=== PATIENT | female | born 1975 | race Two or more races ===

== ENCOUNTER → 2020-06-04 15:37 | Outpatient (BNVA) | payer OTHER, SELFPAY | PROVIDERS: PCP Internal Medicine; Visit Provider Obstetrics & Gynecology ==

== ENCOUNTER 2020-07-02 14:43 | Outpatient (REF) | payer OTHER, SELFPAY ==
[2020-07-03 08:44] LABS: CT PCR NOT DETECTED (Not Detect.); NG PCR NOT DETECTED (Not Detect.)
[2020-07-03 09:39] LABS: BV Int Neg Control Negative (Negative); BV Int Pos Control Positive (Positive)
== END 2020-07-02 14:44 | disposition home or self-care (01) ==
LOC: HO.LAB 14:43
PROVIDERS: PCP Internal Medicine; Visit Provider Advanced Practice Midwife
DX: N89.8 Other specified noninflammatory disorders of vagina (principal); Z20.2 Contact with and (suspected) exposure to infections with a predominantly sexual mode of transmission
CPT/HCPCS: 87480; 87491; 87510; 87591; 87660; 99212

== ENCOUNTER 2020-07-09 08:18 | Outpatient (REF) | payer OTHER, SELFPAY ==
[2020-07-09 09:25] LABS: Alanine Aminotransferase 17 U/L (0-31); Albumin Level 4.3 g/dL (3.5-5.0); Alkaline Phosphatase 80 U/L (39-117); Anion Gap 13 (12-20); Aspartate Amino Transferase 22 U/L (5-31); Bilirubin Total 0.3 mg/dL (0.0-1.0); Blood Urea Nitrogen 10 mg/dL (9-16); Calcium 8.9 mg/dL (8.4-10.2); Carbon Dioxide 24 mmol/L (22-29); Chloride 107 mmol/L (96-108); Cholesterol 194 mg/dL; Estimated Glomerular Filt Rate > 60; Glucose Fasting 80 mg/dL (60-99); HDL Cholesterol 63 mg/dL; LDL Cholesterol Calculated 116 mg/dl; Potassium 4.3 mmol/L (3.3-5.1); Sodium 140 mmol/L (135-145); Total Protein 7.4 g/dL (6.5-8.0); Triglycerides 76 mg/dL
== END 2020-07-09 08:19 | disposition home or self-care (01) ==
LOC: HO.LAB 08:18
PROVIDERS: PCP Internal Medicine; Visit Provider Internal Medicine
DX: E78.00 Pure hypercholesterolemia, unspecified (principal); E78.5 Hyperlipidemia, unspecified
CPT/HCPCS: 36415; 80053; 80061

== ENCOUNTER → 2020-11-20 14:56 | Outpatient (BNVA) | payer OTHER, SELFPAY | PROVIDERS: PCP Internal Medicine; Visit Provider Obstetrics & Gynecology ==

== ENCOUNTER 2021-01-15 13:30 | Outpatient (REF) | payer OTHER, SELFPAY ==
--- NOTE | ~2021-01-15 | MM_ITS ---
EXAMINATION: MM SCREENING DIGITAL BREAST TOMOSYNTHESIS, BILATERAL CLINICAL INFORMATION: Screening. Asymptomatic. The lifetime risk of breast cancer based on the Tyrer-Cuzick Model is 12%. COMPARISON: Mammography: 10/15/2016, 04/30/2016 (baseline); targeted right breast ultrasound 11/02/2016, 05/04/2016 TECHNIQUE: Digital breast tomosynthesis is performed in both the craniocaudal and mediolateral oblique views along with computer-aided detection (CAD). Synthesized 2D images are generated from the tomosynthesis. FINDINGS: There are scattered areas of fibroglandular density (ACR BI-RADS breast composition Category b). There is no interval developing density or significant mass or architectural abnormality. Smooth nodule central 6:00 right breast noted on prior imaging is no longer demonstrated likely resolved cyst. The right breast has new grouped probable benign coarse calcifications mid 11:00 position. There are some other new calcifications in the upper outer quadrant of lesser number. Patient will be recalled for additional magnification views. The axilla and skin contours are unremarkable. MM/MM tomosynthesis screening BI IMPRESSION: 1. Right: New grouped relatively coarse calcifications upper outer right breast. 2. Left: No mammographic evidence of malignancy. ASSESSMENT: BI-RADS 0: Incomplete - Need Additional Imaging Evaluation RECOMMENDATION: 1. Additional views of the right breast (magnification CC, magnification ML). 2. Radiology department staff will contact the patient for additional imaging. This patient's information was entered into a reminder system with a target due date for their next mammogram.
== END 2021-01-15 13:31 | disposition home or self-care (01) ==
LOC: HO.MAMMO 13:30
PROVIDERS: Visit Provider Obstetrics & Gynecology
DX: Z12.31 Encounter for screening mammogram for malignant neoplasm of breast (principal)
CPT/HCPCS: 77063; 77067

== ENCOUNTER 2021-01-24 11:27 | Outpatient (REF) | payer OTHER, SELFPAY ==
--- NOTE | ~2021-01-24 | US_ITS ---
EXAMINATION: US SOFT TISSUE NECK CLINICAL INFORMATION: Lymphadenopathy COMPARISON: None TECHNIQUE: Ultrasound of the neck soft tissues is performed with high- frequency rincon-scale imaging and color Doppler. FINDINGS: THYROID BED: Prior thyroidectomy. No residual thyroid tissue demonstrated in the thyroid bed. No cystic or solid nodules demonstrated in the thyroid bed. RIGHT NECK SOFT TISSUES: Scattered architecturally normal nodes are present bilaterally. The nodes show normal fatty hilus, normal cortical thickness, and no cystic change or calcification. No abnormal color flow. The largest nodes are as follows: Level 2: 1.7 x 0.5 x 1.1 cm. Normal daniela architecture. Level 4: 1.3 x 0.4 x 0.8 cm. Normal daniela architecture. LEFT NECK SOFT TISSUES: Scattered architecturally normal nodes are present. The nodes show normal fatty hilus, normal cortical thickness, and no cystic change or calcification. No abnormal color flow. The largest nodes are as follows: Level 2: 1.2 x 0.4 x 0.9 cm. Normal daniela architecture. US/US soft tiss head and/or neck IMPRESSION: Bilateral cervical lymphadenopathy. Largest lymph nodes are upper normal in size. Lymph nodes demonstrate normal ultrasound morphology. Management should be determined on a clinical basis.
== END 2021-01-24 11:28 | disposition home or self-care (01) ==
LOC: HO.HMGCX 11:27
PROVIDERS: PCP Internal Medicine; Visit Provider Internal Medicine
DX: R59.1 Generalized enlarged lymph nodes (principal)
CPT/HCPCS: 76536

== ENCOUNTER 2021-01-24 13:18 | Outpatient (REF) | payer OTHER, SELFPAY ==
--- NOTE | ~2021-01-24 | MM_ITS ---
EXAMINATION: MM DIAGNOSTIC DIGITAL MAMMOGRAPHY, RIGHT CLINICAL INFORMATION: Recall from screening for increased calcifications upper outer right breast since prior diagnostic mammography 2017. COMPARISON: Mammography: 01/15/2021, 11/02/2016 (diagnostic). TECHNIQUE: Digital mammography is performed in the following views: Magnification CC, magnification ML FINDINGS: There are scattered areas of fibroglandular density (ACR BI-RADS breast composition Category b). The additional magnification views demonstrate 4 groups of calcifications in the central and upper outer right breast, 2 groups coarse and 2 groups smaller size. No layering calcifications on current exam. There are calcifications in these areas on prior study 2017, some layering milk of calcium demonstrated at that time. Results are discussed with patient at time of imaging. Calcifications are probably benign and will be reassessed again in 6 months to include magnification views. If additional more recent prior outside diagnostic mammography from [place], [place] is made available, comparison will be made in an addendum report. MM/MM added views RT IMPRESSION: Probable benign groups of calcifications central and upper outer right breast. ASSESSMENT: BI-RADS 3: Probably Benign RECOMMENDATION: Diagnostic right mammography in 6 months. This patient's information was entered into a reminder system with a target due date for their next mammogram.
== END 2021-01-24 13:19 | disposition home or self-care (01) ==
LOC: HO.MAMMO 13:18
PROVIDERS: PCP Internal Medicine; Visit Provider Obstetrics & Gynecology
DX: R92.1 Mammographic calcification found on diagnostic imaging of breast (principal)
CPT/HCPCS: 77065

== ENCOUNTER 2021-05-06 13:09 | Outpatient (REF) | payer OTHER, SELFPAY ==
[2021-05-06 13:35] LABS: MANUAL DIFF FLAG NO
[2021-05-06 14:18] LABS: Basophils Percent Auto 0.5 % (0-2); Eosinophils Percent Auto 0.2 % (0-4); Hematocrit 23.1 % (37.0-47.0); Lymphocytes Absolute Auto 0.6 X10*3/uL (1.2-4.9); Lymphocytes Percent Auto 14.5 % (20-40); Mean Corpuscular HGB Conc 26.8 g/dl (31.0-35.0); Mean Corpuscular Hemoglobin 16.4 pg (27.0-33.0); Monocytes Absolute Auto 0.3 X10*3/uL (0.1-1.2); Monocytes Percent Auto 6.7 % (2-11); Neutrophils Absolute Auto 3.3 x10*3/uL (2.0-8.3); Neutrophils Percent Auto 78.1 % (45-73); Platelet Count 257 X10*3/uL (160-400); Red Blood Count 3.77 X10*6/uL (4.20-5.50); Red Cell Distribution Width 19.5 % (11.0-16.0); White Blood Count 4.2 X10*3/uL (4.8-10.8)
[2021-05-06 14:39] LABS: Hemoglobin 6.2 g/dl (12.0-16.0); Mean Corpuscular Volume 61.3 fL (80.0-98.0)
[2021-05-06 14:48] LABS: Iron 19 mcg/dL (30-160)
[2021-05-06 15:12] LABS: Percent Iron Saturation 4 % (15-50); Total Iron Binding Capacity 527 mcg/dL (228-428); Unsaturated Iron Binding 508 ug/dL
[2021-05-10 13:02] LABS: Vitamin D 25-OH, D2 <4 ng/mL; Vitamin D 25-OH, D3 9 ng/mL; Vitamin D 25-OH, Total 9 ng/mL (30-100)
== END 2021-05-06 13:10 | disposition home or self-care (01) ==
LOC: HO.LAB 13:09
PROVIDERS: PCP Internal Medicine; Visit Provider Internal Medicine
DX: E55.9 Vitamin D deficiency, unspecified (principal); D64.9 Anemia, unspecified
CPT/HCPCS: 36415; 82306; 83540; 85025

== ENCOUNTER 2021-05-06 16:36 | Emergency (ER) | payer OTHER, SELFPAY ==
[2021-05-06 16:46] VITALS: BP 104/59; PULSE 87; RESP 18; TEMP 37; O2SAT 100; BMI 21.5
--- NOTE | 2021-05-06 18:45 | ECG_ITS ---
Test Reason : ABNORMAL LABS Blood Pressure : / mmHG Vent. Rate : 059 BPM Atrial Rate : 059 BPM P-R Int : 138 ms QRS Dur : 094 ms QT Int : 402 ms P-R-T Axes : 056 059 059 degrees QTc Int : 397 ms Sinus bradycardia Nonspecific T wave abnormality Borderline ECG No previous ECGs available Referred By: Lupe Morillo Electronically Signed By:QUYNH WOOD
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
[2021-05-06 18:56] LABS: OBS Int Ctl Valid YES; OBS1 NEGATIVE (NEGATIVE)
[2021-05-06 18:58] VITALS: BP 102/60; PULSE 64; RESP 16; TEMP 37.2; O2SAT 99
[2021-05-06 19:16] LABS: HCG Quantitative < 2 mIU/mL; Iron 13 mcg/dL (30-160)
[2021-05-06 19:25] LABS: Percent Iron Saturation 2 % (15-50); Total Iron Binding Capacity 550 mcg/dL (228-428); Unsaturated Iron Binding 537 ug/dL
[2021-05-06 19:27] VITALS: BP 109/59; PULSE 64; RESP 14; TEMP 37
--- NOTE | 2021-05-06 19:31 | PC.NURSE ---
Assumed care of pt Pt resting on stretcher, speaking to family on phone Denies any pain First unit of blood started with SHERI Ferris Pt tolerating well
[2021-05-06 19:42] VITALS: BP 106/79; PULSE 65; RESP 18; TEMP 37.2
[2021-05-06 19:44] LABS: Folate 11.6 ng/mL (> or = 4.0); Vitamin B12 169 pg/mL (200-900)
[2021-05-06 21:31] VITALS: BP 105/70; PULSE 71; RESP 16; TEMP 37.2
[2021-05-06 21:55] VITALS: BP 108/57; PULSE 68; RESP 20; TEMP 37.1; O2SAT 97
== END 2021-05-06 21:56 | disposition home or self-care (01) ==
PROVIDERS: Emergency Provider Emergency Medicine; PCP Internal Medicine
DX: D50.9 Iron deficiency anemia, unspecified (principal); R53.83 Other fatigue; Z98.84 Bariatric surgery status
CPT/HCPCS: 36415; 36430; 82272; 82607; 82746; 83540; 84702; 86850; 86900; 86901; 86923; 93005; 99283; 99291; P9016

== ENCOUNTER 2021-05-12 13:14 | Outpatient (REF) | payer OTHER, SELFPAY ==
[2021-05-12 13:29] LABS: MANUAL DIFF FLAG NO
[2021-05-12 13:52] LABS: Basophils Percent Auto 0.7 % (0-2); Hematocrit 27.1 % (37.0-47.0); Hemoglobin 7.4 g/dl (12.0-16.0); Imm Gran Abs Auto 0.01 X10*3/uL (0.00-0.03); Imm Gran Pct Auto 0.2 % (0.0-0.4); Lymphocytes Absolute Auto 1.7 X10*3/uL (1.2-4.9); Lymphocytes Percent Auto 41.4 % (20-40); Mean Corpuscular HGB Conc 27.3 g/dl (31.0-35.0); Mean Corpuscular Hemoglobin 17.6 pg (27.0-33.0); Mean Platelet Volume 10.6 fL (9.4-12.3); Monocytes Absolute Auto 0.2 X10*3/uL (0.1-1.2); Monocytes Percent Auto 5.4 % (2-11); Neutrophils Absolute Auto 2.1 x10*3/uL (2.0-8.3); Neutrophils Percent Auto 51.3 % (45-73); Platelet Count 341 X10*3/uL (160-400); Red Cell Distribution Width 23.6 % (11.0-16.0); White Blood Count 4.1 X10*3/uL (4.8-10.8)
[2021-05-12 13:53] LABS: Mean Corpuscular Volume 64.5 fL (80.0-98.0)
== END 2021-05-12 13:15 | disposition home or self-care (01) ==
LOC: HO.LAB 13:14
PROVIDERS: PCP Internal Medicine; Visit Provider Internal Medicine
DX: D64.9 Anemia, unspecified (principal)
CPT/HCPCS: 36415; 85025

== ENCOUNTER 2021-06-04 08:16 | Outpatient (REF) | payer OTHER, SELFPAY | END 2021-06-04 08:17 | disposition home or self-care (01) | LOC: HO.MDS 08:16 | PROVIDERS: PCP Internal Medicine; Visit Provider Internal Medicine | DX: D50.9 Iron deficiency anemia, unspecified (principal) | CPT/HCPCS: 96365; 96366; J1200; J1750; Q0163 ==

== ENCOUNTER 2021-07-03 10:00 | Outpatient (REF) | payer OTHER, SELFPAY ==
[2021-07-03 10:50] LABS: MANUAL DIFF FLAG NO
[2021-07-03 11:40] LABS: Basophils Percent Auto 0.8 % (0-2); Hematocrit 37.5 % (37.0-47.0); Hemoglobin 11.6 g/dl (12.0-16.0); Imm Gran Abs Auto 0.01 X10*3/uL (0.00-0.03); Imm Gran Pct Auto 0.3 % (0.0-0.4); Lymphocytes Absolute Auto 1.4 X10*3/uL (1.2-4.9); Mean Corpuscular HGB Conc 30.9 g/dl (31.0-35.0); Mean Corpuscular Hemoglobin 24.9 pg (27.0-33.0); Mean Corpuscular Volume 80.6 fL (80.0-98.0); Monocytes Absolute Auto 0.3 X10*3/uL (0.1-1.2); Monocytes Percent Auto 6.5 % (2-11); Neutrophils Absolute Auto 2.1 x10*3/uL (2.0-8.3); Neutrophils Percent Auto 54.4 % (45-73); Platelet Count 243 X10*3/uL (160-400); Red Blood Count 4.65 X10*6/uL (4.20-5.50); Red Cell Distribution Width 28.1 % (11.0-16.0); White Blood Count 3.9 X10*3/uL (4.8-10.8)
[2021-07-03 11:51] LABS: Iron 81 mcg/dL (30-160); Percent Iron Saturation 23 % (15-50); Total Iron Binding Capacity 345 mcg/dL (228-428); Unsaturated Iron Binding 264 ug/dL
== END 2021-07-03 10:01 | disposition home or self-care (01) ==
LOC: HO.LAB 10:00
PROVIDERS: PCP Internal Medicine; Visit Provider Internal Medicine
DX: D64.9 Anemia, unspecified (principal)
CPT/HCPCS: 36415; 83540; 85025

== ENCOUNTER 2021-08-14 13:59 | Outpatient (REF) | payer OTHER, SELFPAY ==
--- NOTE | ~2021-08-14 | MM_ITS ---
EXAMINATION: MM DIAGNOSTIC DIGITAL BREAST TOMOSYNTHESIS, RIGHT CLINICAL INFORMATION: Short interval six-month follow-up probable benign calcifications central and upper outer right breast. The lifetime risk of breast cancer based on the Tyrer-Cuzick Model is 12%. COMPARISON: Mammography: 01/24/2021, 01/15/2021 (BI-RADS 0), outside mammography 10/20/2017 ([place], [place]). TECHNIQUE: Digital breast tomosynthesis is performed in both the craniocaudal and mediolateral oblique views along with computer-aided detection (CAD). Synthesized 2D images are generated from the tomosynthesis. Additional magnification right CC and magnification right ML views are obtained. FINDINGS: Parenchymal pattern is similar to prior study. There is no developing density or interval mass or architectural abnormality. The calcifications for follow-up central and upper outer breast are stable to slightly decreased in number. There are no increasing calcifications. The group central anterior breast on MLO view shows benign layering milk of calcium. Other calcifications are stable and will be reassessed again in 6 months at time of annual exam. Results are provided to the patient at time of visit by the technologist. MM/MM tomosynthesis diagnostic RT IMPRESSION: -No suspicious changes in right breast calcifications under surveillance. ASSESSMENT: BI-RADS 3: Probably Benign RECOMMENDATION: Diagnostic mammography at time of annual bilateral exam, due in 6 months. This patient's information was entered into a reminder system with a target due date for their next mammogram.
== END 2021-08-14 14:00 | disposition home or self-care (01) ==
LOC: HO.MAMMO 13:59
PROVIDERS: PCP Internal Medicine; Visit Provider Obstetrics & Gynecology
DX: R92.1 Mammographic calcification found on diagnostic imaging of breast (principal)
CPT/HCPCS: 77061; 77065

== ENCOUNTER 2021-10-07 09:34 | Outpatient (REF) | payer OTHER, SELFPAY ==
[2021-10-07 09:46] LABS: MANUAL DIFF FLAG NO
[2021-10-07 10:53] LABS: Basophils Percent Auto 0.7 % (0-2); Eosinophils Absolute Auto 0.1 X10*3/uL (0.0-0.4); Eosinophils Percent Auto 1.1 % (0-4); Hematocrit 41.5 % (37.0-47.0); Hemoglobin 13.7 g/dl (12.0-16.0); Imm Gran Abs Auto 0.01 X10*3/uL (0.00-0.03); Imm Gran Pct Auto 0.2 % (0.0-0.4); Lymphocytes Absolute Auto 1.4 X10*3/uL (1.2-4.9); Lymphocytes Percent Auto 31.1 % (20-40); Mean Corpuscular Volume 90.8 fL (80.0-98.0); Mean Platelet Volume 12.1 fL (9.4-12.3); Monocytes Absolute Auto 0.3 X10*3/uL (0.1-1.2); Monocytes Percent Auto 6.3 % (2-11); Neutrophils Absolute Auto 2.7 x10*3/uL (2.0-8.3); Neutrophils Percent Auto 60.6 % (45-73); Platelet Count 225 X10*3/uL (160-400); Red Blood Count 4.57 X10*6/uL (4.20-5.50); Red Cell Distribution Width 13.6 % (11.0-16.0); White Blood Count 4.5 X10*3/uL (4.8-10.8)
[2021-10-07 11:30] LABS: Alanine Aminotransferase 24 U/L (0-31); Albumin Level 4.2 g/dL (3.5-5.0); Alkaline Phosphatase 76 U/L (39-117); Anion Gap 11 (12-20); Aspartate Amino Transferase 26 U/L (5-31); Bilirubin Total 0.6 mg/dL (0.0-1.0); Blood Urea Nitrogen 10 mg/dL (9-16); Calcium 8.8 mg/dL (8.4-10.2); Carbon Dioxide 26 mmol/L (22-29); Chloride 106 mmol/L (96-108); Cholesterol 214 mg/dL; Estimated Glomerular Filt Rate > 60; Glucose Fasting 87 mg/dL (60-99); HDL Cholesterol 65 mg/dL; Iron 137 mcg/dL (30-160); LDL Cholesterol Calculated 133 mg/dl; Percent Iron Saturation 39 % (15-50); Potassium 4.9 mmol/L (3.3-5.1); Sodium 138 mmol/L (135-145); Total Iron Binding Capacity 352 mcg/dL (228-428); Triglycerides 81 mg/dL; Unsaturated Iron Binding 215 ug/dL
[2021-10-07 11:51] LABS: Vitamin D 25-OH Total 24.8 ng/mL (>30)
[2021-10-07 12:15] LABS: Folate 11.2 ng/mL (> or = 4.0); Vitamin B12 324 pg/mL (200-900)
== END 2021-10-07 09:35 | disposition home or self-care (01) ==
LOC: HO.LAB 09:34
PROVIDERS: PCP Internal Medicine; Visit Provider Internal Medicine
DX: Z00.00 Encounter for general adult medical examination without abnormal findings (principal); E55.9 Vitamin D deficiency, unspecified; E53.8 Deficiency of other specified B group vitamins; D64.9 Anemia, unspecified; D50.0 Iron deficiency anemia secondary to blood loss (chronic)
CPT/HCPCS: 36415; 80053; 80061; 82306; 82607; 82746; 83540; 85025

== ENCOUNTER 2021-10-21 10:36 | Outpatient (REF) | payer OTHER, SELFPAY ==
[2021-10-21 13:47] LABS: CT PCR NOT DETECTED (Not Detect.); NG PCR NOT DETECTED (Not Detect.)
[2021-10-22 09:28] LABS: BV Int Neg Control Negative (Negative); BV Int Pos Control Positive (Positive)
== END 2021-10-21 10:37 | disposition home or self-care (01) ==
LOC: HO.LAB 10:36
PROVIDERS: Visit Provider Advanced Practice Midwife
DX: Z11.3 Encounter for screening for infections with a predominantly sexual mode of transmission (principal); N89.8 Other specified noninflammatory disorders of vagina; N94.9 Unspecified condition associated with female genital organs and menstrual cycle; R30.0 Dysuria
CPT/HCPCS: 87086; 87480; 87491; 87510; 87591; 87660; 99212

== ENCOUNTER → 2021-10-29 11:04 | Outpatient (BNVA) | payer OTHER, SELFPAY | PROVIDERS: PCP Internal Medicine; Referring Provider Internal Medicine; Visit Provider Physician Assistant | DX: Z98.84 Bariatric surgery status (principal); M79.3 Panniculitis, unspecified; L98.7 Excessive and redundant skin and subcutaneous tissue | CPT/HCPCS: 99202; 99212 ==

== ENCOUNTER 2021-11-07 10:52 | Outpatient (REF) | payer OTHER, SELFPAY ==
[2021-11-11 11:56] LABS: Zinc 72 mcg/dL (60-130)
[2021-11-13 19:16] LABS: Vitamin B1 10 nmol/L (8-30)
[2021-11-13 21:17] LABS: Vitamin A 34 mcg/dL (38-98)
--- NOTE | 2021-12-04 10:11 | W.MHC.F2F ---
Service Date Service Date: 12/04/21 Encounter Date of encounter: 12/19/21 Reasons for Services Signs and symptoms assessed: Patient will have panniculectomy with Dr Cordova on 12/18/21 she will be discharged on 12/19 and will need home VNA services starting 12/20/21. Reason for senior care: wound care and other (Drain care) MD Overseeing Care: Chad Cordova Homebound: Leaving the home is medically contraindicated at this time without the asist of a device and/or another person due th the listed conditions above and below. Reason homebound: other (post op, bed rest) Certification: Based on the above findings, I certify that this patient is confined to the home and needs intermittent senior care care, physical therapy and/or speech therapy, or continues to need occupational therapy. The patient is under my care, and I have initiated the establishment of the plan of care. The patient will be followed by a physician who will periodically review the plan of care.
== END 2021-11-07 10:53 | disposition home or self-care (01) ==
LOC: HO.LAB 10:52
PROVIDERS: PCP Internal Medicine; Visit Provider Physician Assistant
DX: Z98.84 Bariatric surgery status (principal)
CPT/HCPCS: 36415; 84425; 84590; 84630

== ENCOUNTER 2021-11-26 15:40 | Outpatient (REF) | payer OTHER, SELFPAY ==
[2021-11-27 08:41] LABS: CT PCR NOT DETECTED (Not Detect.); NG PCR NOT DETECTED (Not Detect.)
[2021-11-27 10:51] LABS: BV Int Neg Control Negative (Negative); BV Int Pos Control Positive (Positive)
== END 2021-11-26 15:41 | disposition home or self-care (01) ==
LOC: HO.LAB 15:40
PROVIDERS: Visit Provider Obstetrics & Gynecology
DX: Z11.3 Encounter for screening for infections with a predominantly sexual mode of transmission (principal); B96.89 Other specified bacterial agents as the cause of diseases classified elsewhere; N76.0 Acute vaginitis
CPT/HCPCS: 87480; 87491; 87510; 87591; 87660

== ENCOUNTER → 2021-12-04 13:33 | Outpatient (BNVA) | payer OTHER, SELFPAY | PROVIDERS: PCP Internal Medicine; Referring Provider Internal Medicine; Visit Provider Internal Medicine | DX: I95.0 Idiopathic hypotension (principal); Z98.84 Bariatric surgery status | CPT/HCPCS: 93005; 99202 ==

== ENCOUNTER 2021-12-11 09:35 | Outpatient (REF) | payer OTHER, SELFPAY | END 2021-12-11 09:36 | disposition home or self-care (01) | LOC: HO.LAB 09:35 | PROVIDERS: PCP Internal Medicine; Visit Provider Surgery | DX: Z13.89 Encounter for screening for other disorder (principal) ==

== ENCOUNTER 2021-12-18 18:55 | Inpatient (IN) | payer OTHER, SELFPAY ==
[2021-12-03 09:16] VITALS: BMI 24.3
[2021-12-11 10:05] LABS: MANUAL DIFF FLAG NO
[2021-12-11 10:28] LABS: Basophils Percent Auto 0.9 % (0-2); Eosinophils Percent Auto 0.9 % (0-4); Hematocrit 39.9 % (37.0-47.0); Hemoglobin 13.3 g/dl (12.0-16.0); Imm Gran Abs Auto 0.01 X10*3/uL (0.00-0.03); Imm Gran Pct Auto 0.2 % (0.0-0.4); Lymphocytes Absolute Auto 1.6 X10*3/uL (1.2-4.9); Lymphocytes Percent Auto 34.5 % (20-40); Mean Corpuscular HGB Conc 33.3 g/dl (31.0-35.0); Mean Corpuscular Hemoglobin 30.3 pg (27.0-33.0); Mean Corpuscular Volume 90.9 fL (80.0-98.0); Mean Platelet Volume 12.1 fL (9.4-12.3); Monocytes Absolute Auto 0.2 X10*3/uL (0.1-1.2); Monocytes Percent Auto 4.8 % (2-11); Neutrophils Absolute Auto 2.7 x10*3/uL (2.0-8.3); Neutrophils Percent Auto 58.7 % (45-73); Platelet Count 207 X10*3/uL (160-400); Red Blood Count 4.39 X10*6/uL (4.20-5.50); Red Cell Distribution Width 11.9 % (11.0-16.0); White Blood Count 4.6 X10*3/uL (4.8-10.8)
[2021-12-11 10:32] LABS: Prothrombin Time 11.6 SEC (10.0-13.1)
[2021-12-11 10:35] LABS: Partial Thromboplastin Time 34.5 SEC (26.0-36.4)
[2021-12-11 10:52] LABS: Estimated Average Glucose 88 mg/dL; Hemoglobin A1c % 4.7 %
[2021-12-11 11:15] LABS: Alanine Aminotransferase 21 U/L (0-31); Albumin Level 4.2 g/dL (3.5-5.0); Alkaline Phosphatase 82 U/L (39-117); Anion Gap 13 (12-20); Aspartate Amino Transferase 21 U/L (5-31); Bilirubin Total 0.3 mg/dL (0.0-1.0); Blood Urea Nitrogen 10 mg/dL (9-16); C Reactive Protein 0.03 mg/dL (< or = 0.50); Calcium 9.1 mg/dL (8.4-10.2); Carbon Dioxide 27 mmol/L (22-29); Chloride 104 mmol/L (96-108); Cholesterol 216 mg/dL; Creatinine Clr Calc Pharmacy 116.4; Estimated Glomerular Filt Rate > 60; Glucose Random 79 mg/dL (60-115); HDL Cholesterol 59 mg/dL; Iron 75 mcg/dL (30-160); LDL Cholesterol Calculated 142 mg/dl; Percent Iron Saturation 20 % (15-50); Potassium 4.1 mmol/L (3.3-5.1); Sodium 140 mmol/L (135-145); Total Iron Binding Capacity 377 mcg/dL (228-428); Total Protein 7.1 g/dL (6.5-8.0); Triglycerides 76 mg/dL; Unsaturated Iron Binding 302 ug/dL
[2021-12-11 11:36] LABS: Vitamin B12 326 pg/mL (200-900)
[2021-12-11 11:37] LABS: TSH reflex Free T4 1.54 uIU/mL (0.32-4.0); Vitamin D 25-OH Total 27.1 ng/mL (>30)
[2021-12-11 12:49] LABS: Insulin 5 uU/mL (2-29)
[2021-12-12 06:16] LABS: Syphilis Screen Nonreactive (Nonreactive)
[2021-12-12 07:23] LABS: HBsAGNum1 0.22 S/CO (0.00-0.99); HIV AB/AG Nonreactive (Nonreactive); HIV Num 1 0.07 S/CO (0.00-0.99); Hepatitis B Surface Antigen Negative (Negative); ~HepC Num1 0.11 S/CO (0.00-0.79); ~Hepatitis C Antibody Nonreactive (Nonreactive)
--- NOTE | 2021-12-12 23:18 | P.HPSUR_ITS ---
Pre-Procedural Eval Section A Date of Service: 12/12/21 The patient is an INPATIENT: No The History & Physical has been completed within 30 days and I have reviewed it.: Yes Section B Chief Complaint: panniculitis Relevant Family History (Specify if Yes): No Relevant Social History: None Present Medications: None Medical History: No relevant PMH History of Previous Operations: Relevant previous surgery/procedure and date(s) (gastric bypass) Allergies: Allergies Allergy/AdvReac Type Severity Reaction Status Date / Time No Known Allergies Allergy Verified 12/02/21 13:28 Review of Systems Sugical H&P ROS: Negative: Constitution, Cardiovascular, Respiratory, Neurological, Psychiatric, Hem-Onc, Allergic/Immunologic, Gastrointestinal, Genitourinary, Musculoskeletal, Integumentary, Endocrine and Eyes/Ears/N ose/Throat Exam Surgical H&P Exam: Normal: HEENT, Normal: Heart, Normal: Lungs, Normal: Extremities, Normal: Abdomen, Normal: Skin and Normal: Neurological Plan Diagnosis/Plan: Unchanged I have reviewed the history and physical and performed a pertinent physical examination on my patient. No changes have occurred unless specified.
[2021-12-15 06:07] LABS: Vitamin B1 12 nmol/L (8-30)
[2021-12-16 02:08] LABS: Zinc 69 mcg/dL (60-130)
--- NOTE | 2021-12-17 09:53 | P.CONAN_ITS ---
Documented by User: Marguerite Avila NP 12/17/21 09:55 HPI - Anesthesia Eval Consult details Narrative: 46yo F for Panniculectomy s/p bypass ? 12/2021 cardiac visit re: hypotension. Likely r/t weight loss. No tx at this time. PMF Active Problems Active Problems: All Active Problems (Updated 12/03/21 @ 09:13 by Krystle Soriano, SHERI) Vaginal discharge (Acute) Vaginal itching (Acute) Poor appetite (Acute) Well woman exam (Acute) Physical exam (Acute) B12 deficiency (Acute) Vaginal burning (Acute) Dysuria (Acute) Panniculitis (Acute) Excess skin (Acute) Bacterial vaginosis (Acute) Intestinal malabsorption (Acute) Hx of gastric bypass (Acute) Idiopathic hypotension (Acute) Hypovitaminosis D (Acute) S/P gastric bypass (Acute) Iron deficiency anemia due to chronic blood loss (Chronic) Back pain (Acute) GERD (gastroesophageal reflux disease) (Acute) Head and neck lymphadenopathy (Acute) Past Medical History Medical History Back pain GERD (gastroesophageal reflux disease) Head and neck lymphadenopathy Hypovitaminosis D Idiopathic hypotension Iron deficiency anemia due to chronic blood loss Pure hypercholesterolemia Family History Family History Father Diabetes mellitus Mother HTN (hypertension) Colon polyp Maternal Grandmother Diabetes mellitus Maternal Grandfather CAD (coronary artery disease) Paternal Grandfather CAD (coronary artery disease) Paternal Grandmother Leukemia Brother Colon cancer Surgical History Surgical History H/O colonoscopy Hx of cholecystectomy Hx of gastric bypass Hx of tubal ligation S/P gastric bypass Social History Social History Household Members Other:: minor children Housing: House Are you a primary assurance services manager health care to a significant other at home: Yes Do you presently have visiting nurse or other home services: No Alcohol intake: current Alcohol intake frequency: holidays/special occasions only Alcohol type: hard liquor Patient Tobacco Use Status: Former Tobacco user Quit Date: age 30 Tobacco use type: Cigarette e-Cigarette/Vaping Use: Never Used Second Hand Smoke Exposure: No Use of substances other than those prescribed or required for medical reasons: No Have you been hit, kicked, punched, or otherwise hurt by someone within the past year? If so, by whom?: No Are you DNR?: No Advance Directives: No Advance Directives Information Provided: Yes (brochure mailed) Advance Directives on File: No Recently lost weight without trying: No Eating poorly because of decreased appetite: No Nutrition Risks: No Nutritional Risk Patient : No FDLMP: 11/10/21 : No Poor oral hygiene: No service: No Current occupational status: employed Current occupational exposures/hazards: No Cognitive needs: No Hearing needs: No Vision needs: No Meds Allergies Allergy/AdvReac Type Severity Reaction Status Date / Time No Known Allergies Allergy Verified 12/18/21 10:52 Home Medications Medication Instructions Recorded Confirmed Last Taken Type ferrous sulfate 325 mg (65 mg 1 tab PO DAILY 12/03/21 12/04/21 Unknown History iron) tablet Exam Exam Date and Time: December 17, 2021 0953 Height,Weight and Vital Signs: Height 5 ft 10 in Weight 77.111 kg Pertinent Lab Results Pertinent Lab Results: Laboratory Tests 12/11/21 12/11/21 12/11/21 09:32 10:02 10:02 WBC 4.6 L RBC 4.39 Hgb 13.3 Hct 39.9 MCV 90.9 MCH 30.3 MCHC 33.3 RDW 11.9 Plt Count 207 MPV 12.1 Immature Gran % (Auto) 0.2 Neut % (Auto) 58.7 Lymph % (Auto) 34.5 [facility] % (Auto) 4.8 Eos % (Auto) 0.9 Baso % (Auto) 0.9 Lymph # (Auto) 1.6 [facility] [place] # (Auto) 0.2 Eos # (Auto) 0.0 Baso # (Auto) 0.0 Abs Immat Gran (auto) 0.01 Absolute Neuts (auto) 2.7 Absolute Nucleated RBC 0.000 Nucleated RBC % (auto) 0.0 PT 11.6 INR 1.0 APTT 34.5 Sodium Potassium Chloride Carbon Dioxide Anion Gap BUN Creatinine Estim Creat Clear Calc Estimated GFR Random Glucose Estimat Average Glucose Hemoglobin A1c % Insulin Level Calcium Iron TIBC % Saturation Unsat Iron Binding Total Bilirubin AST ALT Alkaline Phosphatase C-Reactive Protein Total Protein Albumin Triglycerides Cholesterol LDL Cholesterol, Calc HDL Cholesterol Vitamin B1 Vitamin B12 25-OH Vitamin D Total TSH Zinc T.pallidum Ab (EIA) Hep Bs Antigen Hepatitis C Ab (EIA) HIV 1&2 Ab/P24 Ag 4thGn Blood Type B Negative Antibody Screen NEGATIVE 12/11/21 12/11/21 12/11/21 10:02 10:02 10:02 WBC RBC Hgb Hct MCV MCH MCHC RDW Plt Count MPV Immature Gran % (Auto) Neut % (Auto) Lymph % (Auto) [facility] [place] [facility] % (Auto) Eos % (Auto) Baso % (Auto) Lymph # (Auto) [facility] [place] [facility] # (Auto) Eos # (Auto) Baso # (Auto) Abs Immat Gran (auto) Absolute Neuts (auto) Absolute Nucleated RBC Nucleated RBC % (auto) PT INR APTT Sodium 140 Potassium 4.1 Chloride 104 Carbon Dioxide 27 Anion Gap 13 BUN 10 Creatinine 0.66 Estim Creat Clear Calc 116.4 Estimated GFR > 60 Random Glucose 79 Estimat Average Glucose 88 Hemoglobin A1c % 4.7 Insulin Level 5 Calcium 9.1 Iron 75 TIBC 377 % Saturation 20 Unsat Iron Binding 302 Total Bilirubin 0.3 AST 21 ALT 21 Alkaline Phosphatase 82 C-Reactive Protein 0.03 Total Protein 7.1 Albumin 4.2 Triglycerides 76 Cholesterol 216 LDL Cholesterol, Calc 142 HDL Cholesterol 59 Vitamin B1 Vitamin B12 326 25-OH Vitamin D Total 27.1 TSH 1.54 Zinc T.pallidum Ab (EIA) Hep Bs Antigen Hepatitis C Ab (EIA) HIV 1&2 Ab/P24 Ag 4thGn Blood Type Antibody Screen 12/11/21 12/11/21 12/11/21 10:02 10:02 10:02 WBC RBC Hgb Hct MCV MCH MCHC RDW Plt Count MPV Immature Gran % (Auto) Neut % (Auto) Lymph % (Auto) [facility] [place] [facility] % (Auto) Eos % (Auto) Baso % (Auto) Lymph # (Auto) [facility] # (Auto) Eos # (Auto) Baso # (Auto) Abs Immat Gran (auto) Absolute Neuts (auto) Absolute Nucleated RBC Nucleated RBC % (auto) PT INR APTT Sodium Potassium Chloride Carbon Dioxide Anion Gap BUN Creatinine Estim Creat Clear Calc Estimated GFR Random Glucose Estimat Average Glucose Hemoglobin A1c % Insulin Level Calcium Iron TIBC % Saturation Unsat Iron Binding Total Bilirubin AST ALT Alkaline Phosphatase C-Reactive Protein Total Protein Albumin Triglycerides Cholesterol LDL Cholesterol, Calc HDL Cholesterol Vitamin B1 12 Vitamin B12 25-OH Vitamin D Total TSH Zinc 69 T.pallidum Ab (EIA) Nonreactive Hep Bs Antigen Hepatitis C Ab (EIA) HIV 1&2 Ab/P24 Ag 4thGn Blood Type Antibody Screen 12/11/21 10:02 WBC RBC Hgb Hct MCV MCH MCHC RDW Plt Count MPV Immature Gran % (Auto) Neut % (Auto) Lymph % (Auto) [facility] % (Auto) Eos % (Auto) Baso % (Auto) Lymph # (Auto) [facility] # (Auto) Eos # (Auto) Baso # (Auto) Abs Immat Gran (auto) Absolute Neuts (auto) Absolute Nucleated RBC Nucleated RBC % (auto) PT INR APTT Sodium Potassium Chloride Carbon Dioxide Anion Gap BUN Creatinine Estim Creat Clear Calc Estimated GFR Random Glucose Estimat Average Glucose Hemoglobin A1c % Insulin Level Calcium Iron TIBC % Saturation Unsat Iron Binding Total Bilirubin AST ALT Alkaline Phosphatase C-Reactive Protein Total Protein Albumin Triglycerides Cholesterol LDL Cholesterol, Calc HDL Cholesterol Vitamin B1 Vitamin B12 25-OH Vitamin D Total TSH Zinc T.pallidum Ab (EIA) Hep Bs Antigen Negative Hepatitis C Ab (EIA) Nonreactive HIV 1&2 Ab/P24 Ag 4thGn Nonreactive Blood Type Antibody Screen Narrative Narrative: EKG 12/2021 sinus bradycardia, 51/Min; no significant ST-T changes and otherwise unremarkable.? Normal WA and corrected QT. Assessment and Plan Assessment Anesthesia Assessment: Chart Reviewed Documented by User: Geraldo Reyes MD 12/18/21 11:02 [facility] Past Medical History Medical History Back pain GERD (gastroesophageal reflux disease) Head and neck lymphadenopathy Hypovitaminosis D Idiopathic hypotension Iron deficiency anemia due to chronic blood loss Pure hypercholesterolemia Family History Family History Father Diabetes mellitus Mother HTN (hypertension) Colon polyp Maternal Grandmother Diabetes mellitus Maternal Grandfather CAD (coronary artery disease) Paternal Grandfather CAD (coronary artery disease) Paternal Grandmother Leukemia Brother Colon cancer Family history of problems with anesthesia: No Surgical History Surgical History H/O colonoscopy Hx of cholecystectomy Hx of gastric bypass Hx of tubal ligation S/P gastric bypass History of Problems with Anesthesia: No Social History Social History Household Members Other:: minor children Housing: House Are you a primary assurance services manager health care to a significant other at home: Yes Do you presently have visiting nurse or other home services: No Alcohol intake: current Alcohol intake frequency: holidays/special occasions only Alcohol type: hard liquor Patient Tobacco Use Status: Former Tobacco user Quit Date: age 30 Tobacco use type: Cigarette e-Cigarette/Vaping Use: Never Used Second Hand Smoke Exposure: No Use of substances other than those prescribed or required for medical reasons: No Have you been hit, kicked, punched, or otherwise hurt by someone within the past year? If so, by whom?: No Are you DNR?: No Advance Directives: No Advance Directives Information Provided: Yes (brochure mailed) Advance Directives on File: No Recently lost weight without trying: No Eating poorly because of decreased appetite: No Nutrition Risks: No Nutritional Risk Patient : No FDLMP: 11/10/21 : No Poor oral hygiene: No service: No Current occupational status: employed Current occupational exposures/hazards: No Cognitive needs: No Hearing needs: No Vision needs: No Meds Allergies Allergy/AdvReac Type Severity Reaction Status Date / Time No Known Allergies Allergy Verified 12/18/21 10:52 Home Medications Medication Instructions Recorded Confirmed Last Taken Type ferrous sulfate 325 mg (65 mg 1 tab PO DAILY 12/03/21 12/04/21 Unknown History iron) tablet Exam Airway Mallampati Class: II TM Dist: >3cm Neck ROM: Full Loose/Missing/Broken Teeth: No Heart: rrr+[id number] Lungs: cta b/l Assessment and Plan Assessment Anesthesia Assessment: Anesthesia Plan Discussed Final Anesthetic Review Family History of Problems with Anesthesia: No History of Problems with Anesthesia: No NPO: Yes ASA Class: II Final Preanesthetic Review: No Changes in Pt Med Stat, Meds/Allgs Chart Reviewed, Consent Obtained/Reviewed and Anes Risks/Benef Reviewed Patient Risk: Intermediate Procedure Risk: Intermediate Assessment/Block/Sedation in SS: Assess/Block/Sedation-SS Anesthetic Plan Anesthetic Plan: GA and Agree w/ Assess. and Plan Disposition: Standard PACU
[2021-12-17 16:43] LABS: Vitamin A 33 mcg/dL (38-98)
[2021-12-18] VITALS (12 sets, daily range): BP systolic 101–120; BP diastolic 56–77; PULSE 45–82; RESP 15–18; TEMP 35.8–36.8; O2SAT 97–100
[2021-12-18] MEDS: Lactated Ringers 1,000 ML 100 ML IVCONT (11:05)
--- NOTE | 2021-12-18 13:18 | PM.OP ---
Brief Operative Note Date of Service: 12/18/21 Pre-op diagnosis: Panniculitis Post-op diagnosis: same Procedure: PROCEDURE:?Panniculectomy?with umbilical transposition and bilateral subcutaneous fat flaps, INDICATION: This a 46 year old female who underwent laparoscopic Violette-en-Y gastric bypass. She had an excellent result achieving a BMI of 24.4 kg/m2 with a total weight loss of 135lbs, or 44.2% of her TBWL. As a result, she has developed panniculitis which has not resolved despite continuous use of clotrimazole ointment.. On exam she has extreme skin laxity due to massive weight loss and age with the abdominal pannus completely hiding the genitalia..?Panniculectomy was recommended. We discussed the two options for the?panniculectomy?of using a combined vertical and?horizontal?incisions or just a?horizontal?(bikini) incision. It was my recommendation to do only?horizontal?incision based on her body habitus and skin laxity. The patient agreed with this. Risks and complications were discussed with the patient including bleeding, infection, umbilical loss, flap necrosis, asymmetry, dehiscence, seroma, VTE. The patient understood the risks and was in agreement to proceed with surgery. PROCEDURE: The incisions were appropriately marked at the preop area with the patient standing and laying down. After induction of general anesthesia a Robles catheter and pneumatic compression devices were placed. The patient was prepped and draped in the usual sterile manner and the incisions were marked again and confirmed. The skin was infiltrated with lidocaine and epinephrine. The #10 blade scalpel was used for the large incisions and the #15 blade scalpel for the umbilicus. Cautery was used to divide the subcutaneous tissues until the fascia was identified. Then I used the Thunderbeat (Olympus) to separate the pannus from the fascia. The inferior incision was made initially and I mobilized the flap for a several centimeters cephalad to the umbilicus. The umbilicus was incised circumferentially and detached from the surrounding tissues all the way to the fascia while its stalk was preserved. With the patient in reflex position I confirmed that the skin flaps were appropriate and would allow for the tissues to come together with reasonable tension. At that point a?horizontal?incision was made 4 cm above the umbilicus. #10 blade was used for the skin, cautery for the dermis and the Thunderbeat for the remaining tissues. A subcutaneous fat flap was raised from the upper skin flap in order to fill the space under the skin and support the closure of the two flaps. In addition the inferior flap was mobilized caudally for a few centimeters to create a space for the subcutaneous fat flap as well as relieve tension from the closure. A circumferential incision was made at the area where the umbilicus would be re-implanted. The umbilicus was appropriately oriented and was delivered through the defect and was secured in place with a Katty. The excised pannus weighed 1.255gr and its dimensions were 53 x 18 cm. No bleeding was noted anywhere. One LEONOR drain was placed from the left corner of the?horizontal?incision across the wound and was secured in place with a silk suture. A total of 14ml of Zynrelef was applied on top of the fascia and under the subcutaneous fat flaps. The subcutaneous fat flap was secured under the inferior flap with several interrupted 3.0 Monocryl sutures. The two flaps were brought together and were attached at the midline of the?horizontal?incision with a #3.0 Monocryl suture. At that point the umbilicus was properly oriented and was re-approximated to the skin with 8 interrupted 3.0 Monocryl sutures. In a similar fashion the skin flaps were re-approximated with multiple 3.0 Monocryl sutures. The skin was closed in all incisions and umbilicus with 4.0 Monocryl sutures. Steri-strips, xeroform gauzes and gauzes were used to cover the incisions. An abdominal binder was also placed. The was awaken and was transferred to the recover room in a stable condition. I was present and performed the entire procedure. Su Lloyd was the judicial administrative assistant. Jose Cordova MD, PhD, FACS Surgeon: Chad Cordova MD Surgeon: Chad Cordova MD Anesthesia: GETA and local (& 14ml of Zynrelef) Was an White Shoe Examiner used for this Procedure?: No White Shoe Examiner: Jean-Paul Lloyd Estimated blood loss (mL): 10 IV fluids (mL): 2,000 Urine output (mL): 300 Pathology: other (Abdominal pannus) Condition: stable Disposition: PACU
--- NOTE | 2021-12-18 19:10 | PM.DS ---
DS: Providers Provider Date of Service: 12/19/21 Primary care physician: Tabitha Gomez MD DS: Summary Hospital Course Hospital Course: DISCHARGE SUMMARY ? ADMITTING DIAGNOSIS: panniculitis, s/p gastric bypass in [facility] 2018. ? DISCHARGE DIAGNOSIS: The same. ? PAST SURGICAL HISTORY: [facility] 2019, Cholecystectomy, tubal ligation. ? PROCEDURE: Panniculectomy. ? HISTORY OF PRESENT ILLNESS: The patient is a 46 year-old female with a BMI of 24.4 kg/m2 and associated co-morbidities as described previous. The patient had a gastric bypass in [place], [place] [id number] and has lost a total of 146.6 lbs, or 46.5% of her initial weight and her BMI reduced to 24.4 kg/m2 from 45.2 kg/m2. As a result of the massive weight loss she developed a large abdominal pannus and persistent panniculitis recalcitrant to medical treatment. The patient was electively scheduled for panniculectomy. Risks and complications of the surgery were discussed with the patient in advance, particularly the possibility of , pulmonary embolism, skin necrosis, loss of umbilicus, flap necrosis, wound dehiscence, flap asymmetry, bleeding requiring transfusion. The patient understood all the risks and was in agreement with the surgical plan. ? ? ? On postoperative day #1 the patient was started on Phase 3 bariatric diet. The Robles was discontinued. She was allowed to ambulate and she had no dizziness. During the first day, the patient did fairly well,having some incisional pain, but able to ambulate adequately and to tolerate liquids well. All dressings were taken down and the all incisions were inspected. There was no evidence of infection or bleeding or significant discharge. All flaps and umbilicus were viable and there was no dehiscence. LEONOR drains had minimal output with serosanguinous fluid. ? Since the patient is doing well, we decided that the patient was ready to be discharged. The patient was given instructions to follow-up with me next week and to call my office for any fever over 101, persistent abdominal pain, nausea, vomiting, and symptoms of DVT such as calf tenderness, or leg swelling, or pulmonary embolism such as chest pain or shortness of breath. The patient was also instructed to drink 40-60 ounces of liquids per day using the 1-ounce cups and start on 3 Pure protein shakes per day. The patient was given prescription for Tylenol for pain, Zofran prn for nausea and a 10-day course of Keflex twice a day. The patient was encouraged to ambulate and use the incentive spirometer. However it was strongly recommended to do so with assistance and avoid any abdominal straining for at least one month. The patient was allowed only to do sponge baths, and encouraged to use the recliner at home and not the bed. All of these instructions were given to the patient personally. All questions were answered and the patient understood all instructions. The instructions were given to the patient in print as well. Time Spent with Patient Time attestation: Total time spent providing and/or coordinating discharge services: Discharge coordination time: Less than 30 minutes Quality: Safe Use of Opioids Does Pt have an Active Cancer Diagnosis on the Problem List?: No Quality: Stroke Does the patient have a stroke diagnosis?: No Physical Exam Vital Signs: Vital Signs: Last Vital Signs Temp 97.5 F 12/18/21 18:50 Pulse 82 12/18/21 19:00 Resp 16 12/18/21 19:00 BP 116/77 12/18/21 19:00 Pulse Ox 99 12/18/21 19:00 O2 Del Method 12/18/21 19:00 O2 Flow Rate 2 12/18/21 19:00 BMI result Body Mass Index 24.3 DS: Data Data Completed and Pending Pending studies at discharge: Pending at discharge 12/18/21 16:07 Surgical [PTH] Routine Discharge Plan Discharge Patient Disposition: Home Health Service Discharge Diagnosis: s/p panniculectomy Referrals: Tabitha Martinez MD [Primary Care Provider] - 1 Week Discharge Medications: Continued vitamin A palmitate 10,000 unit tablet 20,000 unit PO DAILY 14 Days Qty: 28 0RF omeprazole 20 mg capsule,delayed release(DR/EC) 20 mg PO DAILY 90 Days Qty: 90 1RF cephalexin 500 mg capsule 500 mg PO Q12H Qty: 30 2RF ferrous sulfate 325 mg (65 mg iron) tablet 1 tab PO DAILY cyanocobalamin (vitamin B-12) [Vitamin B-12] 1,000 mcg Tablet 1,000 mcg PO DAILY Qty: 90 3RF folic acid 1 mg tablet 1 mg PO DAILY 90 Days Qty: 90 1RF cholecalciferol (vitamin D3) 25 mcg (1,000 unit) capsule 25 mcg PO DAILY 90 Days Qty: 90 1RF Discharge Orders: Discharge Order (Routine); Ordered 12/19/21 Ordered By: Jean-Paul Lloyd Activity on Discharge: listed Stand Alone Forms: Patient Portal Discharge page Activity Restrictions/Additional Instructions: 1) Start Keflex antibiotic 2) No showers. Only sponge baths 3) Avoid any tension at the abdomen and always have help getting up. Keep knees slighly bent and upper torso flexed forward. No abdominal stretching 4) Take 1 tab of Colace and one tablespoon of Metamucil daily Diet: 5 1/2-bottle premade Premier protein shakes (2.5 bottles in total per day) until you have a bowel movement. Once you have a bowel movement please change diet plan to 4 1/2 bottle Premeir shakes (2 bottles in total per day and one meal with 4 forks of meat and 4 forks of vegetables or salad. Do not stop or reduce shakes and bars. They are very important for your healing 5) Change dressings daily and send pictures to Dr. Cordova. Replace loose steri-strips and xeroform gauze along the incisions.On top of the xeroform gauzes place 4x4 dressings and paper tape 6) Supplies needed: Kerlex rolls, 4x4 dressings, xeroform gauze, 1/2'' steri-strips, paper tape. You will need to use several of the above supplies on a daily basis. 7) Avoid heavy lifting for 3 weeks 8) Take Tylenol 500mg every 4 hours, around the clock for the next 3-4 days. If pain has improved you may slowly reduce its frequency 9) Avoid aspirin, Motrin, Aleve, Advil, Naproxyn, Ibuprofen for 2 weeks 7) Call Dr. Cordova at [phone] for fever >101F, persistent incisional pain,, discharge from any of the incisions, swelling, redness, shortness of breath, calf pain 8) A visiting nurse will be seeing you daily to help with dressing changes 9) Measure accurately the drain output and record it in a paper for 24 hour periods (7am to 7am). Please bring that sheet with you at your next office appointment.? Care Plan Goals: maintain protein to heal well Health Concerns: s/p panniculectomy Plan of Treatment: 1) Record drain output for all 24 hour periods on drain output sheet. Bring sheet at the next office visit 2) Start Keflex antibiotic 3) No showers. Only sponge baths 4) Avoid any tension on the abdomen and always have help getting up. Use your arms to push off from chair/bed. 5) Take 1 tab of Colace and one tablespoon of Metamucil daily 6) Diet: 4 protein shakes, or 3 shakes and one bar, or 3 shakes and one meal (2oz meat and 2oz salad) 7) Wear binder at all times 8) Change dressings daily and send pictures to Dr. Cordova. Replace loose steri-strips and xeroform gauze along the incisions and umbilicus. 9) Supplies needed: ABD pads, 4x4 dressings, xeroform gauze, 1/2'' steri-strips, paper tape. You will need to use several of the above supplies on a daily basis. Assessment: stable s/p panniculectomy
--- NOTE | 2021-12-18 19:19 | PHA.MEDREC ---
Pharmacy Consult ? Medication Reconciliation Pharmacy has reviewed the medication reconciliation completed by nursing. Per Dr Tabitha Gomez, vit d3 was decreased from 50 mcg to 25 mcg. Veronica Starr, PharmD
--- NOTE | 2021-12-18 19:20 | P.F2F_ITS ---
Service Date Service Date: 12/18/21 Encounter Date of encounter: 12/18/21 Reasons for Services Signs and symptoms assessed: s/p panniculectomy Reason for residential: wound care MD Overseeing Care: Chad Cordova Homebound: Leaving the home is medically contraindicated at this time without the asist of a device and/or another person due th the listed conditions above and below. Reason homebound: unable to drive and other (s/p panniculectomy) Certification: Based on the above findings, I certify that this patient is confined to the home and needs intermittent residential care, physical therapy and/or speech therapy, or continues to need occupational therapy. The patient is under my care, and I have initiated the establishment of the plan of care. The patient will be followed by a physician who will periodically review the plan of care.
[2021-12-18 19:23] LABS: COVID-19 Test Positive (Negative)
[2021-12-18] MEDS: Metoclopramide HCl 10 MG/2 ML VIAL IVPUSH (19:31)
[2021-12-18] MEDS: Famotidine/PF 20 MG/2 ML VIAL IVPUSH (19:32)
[2021-12-18 19:46] LABS: Hematocrit 37.4 % (37.0-47.0); Hemoglobin 12.7 g/dl (12.0-16.0)
[2021-12-18 20:07] LABS: Anion Gap 15 (12-20); Blood Urea Nitrogen 9 mg/dL (9-16); Calcium 8.5 mg/dL (8.4-10.2); Carbon Dioxide 21 mmol/L (22-29); Chloride 107 mmol/L (96-108); Creatinine Clr Calc Pharmacy 114.6; Estimated Glomerular Filt Rate > 60; Glucose Random 152 mg/dL (60-115); Potassium 3.4 mmol/L (3.3-5.1); Sodium 140 mmol/L (135-145)
[2021-12-18] MEDS: Lactated Ringers 1,000 ML 125 ML IVCONT (21:18)
[2021-12-18] MEDS: ondansetron HCL 4 MG/2 ML VIAL IVPUSH (21:19)
[2021-12-18] MEDS: 0.9 % Sodium Chloride Flush 3 ML SYRINGE IVFLUSH (21:28)
[2021-12-19 03:00] VITALS: BP 103/58; PULSE 52; RESP 20; TEMP 36.6; O2SAT 100
[2021-12-19] MEDS: Lactated Ringers 1,000 ML 125 ML IVCONT (05:17)
[2021-12-19] MEDS: ondansetron HCL 4 MG/2 ML VIAL IVPUSH (05:56)
[2021-12-19 06:20] LABS: MANUAL DIFF FLAG NO
[2021-12-19 06:25] LABS: Basophils Percent Auto 0.1 % (0-2); Eosinophils Absolute Auto 0.1 X10*3/uL (0.0-0.4); Eosinophils Percent Auto 0.6 % (0-4); Hematocrit 33.1 % (37.0-47.0); Hemoglobin 11.2 g/dl (12.0-16.0); Imm Gran Abs Auto 0.02 X10*3/uL (0.00-0.03); Imm Gran Pct Auto 0.3 % (0.0-0.4); Lymphocytes Absolute Auto 1.1 X10*3/uL (1.2-4.9); Lymphocytes Percent Auto 13.5 % (20-40); Mean Corpuscular HGB Conc 33.8 g/dl (31.0-35.0); Mean Corpuscular Hemoglobin 30.6 pg (27.0-33.0); Mean Corpuscular Volume 90.4 fL (80.0-98.0); Mean Platelet Volume 11.9 fL (9.4-12.3); Monocytes Absolute Auto 0.5 X10*3/uL (0.1-1.2); Monocytes Percent Auto 6.8 % (2-11); Neutrophils Absolute Auto 6.2 x10*3/uL (2.0-8.3); Neutrophils Percent Auto 78.7 % (45-73); Platelet Count 163 X10*3/uL (160-400); Red Blood Count 3.66 X10*6/uL (4.20-5.50); White Blood Count 7.9 X10*3/uL (4.8-10.8)
--- NOTE | 2021-12-19 06:52 | HO.POSTANES ---
Post Anesthesia Evaluation Post Anesthesia Evaluation Vital Signs: Vital Signs Temp Pulse Resp BP Pulse Ox O2 Del Method O2 Flow Rate 12/19/21 03:00 98 F 52 20 103/58 L 100 Room Air 12/18/21 23:56 97.5 F 62 17 106/59 L 100 Room Air 12/18/21 20:35 96.4 F L 18 101/57 L 100 Room Air 12/18/21 20:02 96.4 F L 18 101/57 L Room Air 12/18/21 19:50 97.8 F 67 16 103/61 99 Room Air 12/18/21 19:40 75 16 105/56 L 99 Room Air 12/18/21 19:35 68 16 111/64 98 Room Air 12/18/21 19:20 98.3 F 72 16 114/60 99 Room Air 12/18/21 19:05 71 16 117/63 100 Nasal Cannula 2 12/18/21 19:00 82 16 116/77 99 Nasal Cannula 2 12/18/21 18:55 78 16 113/65 99 Nasal Cannula 2 FiO2 12/19/21 03:00 12/18/21 23:56 12/18/21 20:35 12/18/21 20:02 100 12/18/21 19:50 12/18/21 19:40 12/18/21 19:35 12/18/21 19:20 12/18/21 19:05 12/18/21 19:00 12/18/21 18:55 Anesthesia: General Endotracheal-GETA Mental Status: Awake Pain Control: Satisfactory Nausea/Vomiting: Mild Hydration: Adequate Anesthesia-Related Issues: No Anes. Related Issues
[2021-12-19 07:00] VITALS: BP 102/59; PULSE 56; RESP 20; TEMP 37.6; O2SAT 99
[2021-12-19 07:11] LABS: Anion Gap 12 (12-20); Blood Urea Nitrogen 6 mg/dL (9-16); Calcium 8.2 mg/dL (8.4-10.2); Carbon Dioxide 24 mmol/L (22-29); Chloride 108 mmol/L (96-108); Estimated Glomerular Filt Rate > 60; Glucose Random 93 mg/dL (60-115); Potassium 4.2 mmol/L (3.3-5.1); Sodium 140 mmol/L (135-145)
[2021-12-19] MEDS: Famotidine/PF 20 MG/2 ML VIAL IVPUSH (08:11)
[2021-12-19] MEDS: 0.9 % Sodium Chloride Flush 3 ML SYRINGE IVFLUSH (08:16)
--- NOTE | 2021-12-19 09:35 | MHC.CM.PN ---
Female 46 S/P panniculectomy Will discharge to home with resumption of home care services. She has arranged for transportation home. Her Foly has been removed. She is DTV prior to discharge.
[2021-12-19 11:00] VITALS: BP 101/58; PULSE 58; RESP 20; TEMP 36; O2SAT 96
--- NOTE | 2021-12-19 11:00 | PC.NURSE ---
0730. Accompanied PA with dressing change and education prior to discharge, pt demonstrates understanding. Pt also educated about LEONOR drainage and how to measure output. Pt states she is comfortable. Call snow in reach, safety precautions taken. 08. Robles catheter removed. 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 Call snow in reach, safety precautions taken, pt informed to call for assistance to the BR. 1000. Pt assisted OOB to bathroom. Voided successfully. Pt back to bed, call bed in reach, safety precautions taken. 1100. Discharge education given, pt demonstrates understanding.
--- NOTE | 2021-12-19 16:18 | MHC.CM.PN ---
jin pts nurse will call rhoda at [facility] per her request [phone] ext [phone] she had questions re pt being sent home with dresssings
== END 2021-12-19 11:25 | disposition home health service (06) | DRG 385 ==
LOC: HO.S3 19:15 → HO.IMC 19:38
PROVIDERS: Obstetrics & Gynecology; Physician Assistant Surgical; Admitting Provider Surgery; PCP Internal Medicine; Visit Provider Surgery
PROC: 0JB80ZZ Excision of Abdomen Subcutaneous Tissue and Fascia, Open Approach (ICD-10-PCS; CPT 15830; principal; 2021-12-18 12:00)
DX: M79.3 Panniculitis, unspecified (principal); K21.9 Gastro-esophageal reflux disease without esophagitis; Z98.84 Bariatric surgery status; Z98.51 Tubal ligation status; Z87.891 Personal history of nicotine dependence
CPT/HCPCS: 36415; 80048; 80053; 80061; 82306; 82607; 83036; 83525; 83540; 84425; 84443; 84590; 84630; 85014; 85018; 85025; 85610; 85730; 86140; 86780; 86803; 86850; 86900; 86901; 87340; 87389; 87635; 88304; C1758; C9088; J0131; J0690; J1100; J1170; J2250; J2405; J2550; J2765; J3010; J3370

== ENCOUNTER 2022-02-17 08:06 | Outpatient (REF) | payer OTHER, SELFPAY ==
[2022-02-17 08:19] LABS: MANUAL DIFF FLAG NO
[2022-02-17 09:18] LABS: Basophils Percent Auto 0.9 % (0-2); Eosinophils Absolute Auto 0.1 X10*3/uL (0.0-0.4); Eosinophils Percent Auto 1.6 % (0-4); Hematocrit 41.5 % (37.0-47.0); Hemoglobin 13.4 g/dl (12.0-16.0); Imm Gran Abs Auto 0.01 X10*3/uL (0.00-0.03); Imm Gran Pct Auto 0.2 % (0.0-0.4); Lymphocytes Absolute Auto 1.4 X10*3/uL (1.2-4.9); Lymphocytes Percent Auto 30.8 % (20-40); Mean Corpuscular HGB Conc 32.3 g/dl (31.0-35.0); Mean Corpuscular Hemoglobin 29.2 pg (27.0-33.0); Mean Corpuscular Volume 90.4 fL (80.0-98.0); Mean Platelet Volume 12.3 fL (9.4-12.3); Monocytes Absolute Auto 0.3 X10*3/uL (0.1-1.2); Monocytes Percent Auto 6.3 % (2-11); Neutrophils Absolute Auto 2.7 x10*3/uL (2.0-8.3); Neutrophils Percent Auto 60.2 % (45-73); Platelet Count 225 X10*3/uL (160-400); Red Blood Count 4.59 X10*6/uL (4.20-5.50); Red Cell Distribution Width 12.2 % (11.0-16.0); White Blood Count 4.4 X10*3/uL (4.8-10.8)
[2022-02-17 10:48] LABS: HBsAGNum1 0.16 S/CO (0.00-0.99); HIV AB/AG Nonreactive (Nonreactive); HIV Num 1 0.09 S/CO (0.00-0.99); Hepatitis B Surface Antigen Negative (Negative); ~HepC Num1 0.09 S/CO (0.00-0.79); ~Hepatitis C Antibody Nonreactive (Nonreactive)
[2022-02-17 11:59] LABS: Vitamin D 25-OH Total 18.6 ng/mL (>30)
[2022-02-18 07:08] LABS: Syphilis Screen Nonreactive (Nonreactive)
== END 2022-02-17 08:07 | disposition home or self-care (01) ==
LOC: HO.LAB 08:06
PROVIDERS: Absent Provider Obstetrics & Gynecology; PCP Internal Medicine; Visit Provider Internal Medicine
DX: D64.9 Anemia, unspecified (principal); N76.0 Acute vaginitis; B96.89 Other specified bacterial agents as the cause of diseases classified elsewhere; E55.9 Vitamin D deficiency, unspecified
CPT/HCPCS: 36415; 82306; 85025; 86780; 86803; 87340; 87389

== ENCOUNTER 2022-02-24 14:53 | Outpatient (REF) | payer OTHER, SELFPAY ==
--- NOTE | ~2022-02-24 | MM_ITS ---
EXAMINATION: MM DIAGNOSTIC DIGITAL BREAST TOMOSYNTHESIS, BILATERAL CLINICAL INFORMATION: Due for yearly. Also follow-up probable benign calcifications right breast central and upper outer quadrant. No known family history breast cancer. The lifetime risk of breast cancer based on the Tyrer-Cuzick Model is 12%. COMPARISON: Mammography: 08/14/2021, 01/24/2021, 01/15/2021 (BI-RADS 0), 04/30/2016. TECHNIQUE: Digital breast tomosynthesis is performed in both the craniocaudal and mediolateral oblique views along with computer-aided detection (CAD). Synthesized 2D images are generated from the tomosynthesis. Additional magnification views are obtained: Bilateral CC, bilateral ML. FINDINGS: There are scattered areas of fibroglandular density (ACR BI-RADS breast composition Category b). Parenchymal pattern is similar to prior exams and there is no developing density or interval architectural abnormality. Mild duct ectasia again seen retroareolar left breast. The bilateral axilla and skin contours are unremarkable. There are some punctate calcifications mid 12:00 left breast questionably increased, prompting additional magnification views today. The calcifications appear fine round and uniform. No pleomorphic calcifications or ductal distribution. Left breast calcifications will be reassessed again in 6 months. Right breast calcifications for follow-up are similar to prior diagnostic exams. There are several small groups, one showing layering. Right breast calcifications will be reassessed again in 6 months. Results are provided to the patient at time of visit by the technologist. MM/MM tomosynthesis diagnostic BI IMPRESSION: Right: -No suspicious change in probable benign right breast calcifications under surveillance. Left: -Small round uniform probable benign calcifications mid 12:00 position possibly increased. ASSESSMENT: BI-RADS 3: Probably Benign RECOMMENDATION: Bilateral diagnostic mammography in 6 months. This patient's information was entered into a reminder system with a target due date for their next mammogram.
== END 2022-02-24 14:54 | disposition home or self-care (01) ==
LOC: HO.MAMMO 14:53
PROVIDERS: PCP Internal Medicine; Visit Provider Internal Medicine
DX: R92.1 Mammographic calcification found on diagnostic imaging of breast (principal)
CPT/HCPCS: 77062; 77066

== ENCOUNTER → 2022-03-23 08:58 | Outpatient (BNVA) | payer OTHER, SELFPAY | PROVIDERS: PCP Internal Medicine; Visit Provider Physician Assistant Surgical | DX: Z98.890 Other specified postprocedural states (principal) | CPT/HCPCS: 99212 ==